=== PATIENT | female | born 1985 | race Two or more races ===

== ENCOUNTER 2016-10-17 10:11 | Emergency (ER) | payer OTHER ==
[2016-10-17 10:28] VITALS: BP 115/64; PULSE 72; RESP 20; TEMP 98.6; O2SAT 98
[2016-10-17] MEDS ORDERED: Sodium Chloride 0.9% 1,000 ML IV STA (10:49)
--- NOTE | 2016-10-17 11:20 | ED PDOC ---
HPI: Abdomen Time Seen by Provider: 10/17/16 11:19 Chief Complaint (Nursing): Abdominal Pain Chief Complaint (Provider): vaginal bleeding History Per: Patient (30 y/o female here with spotting and increased bleeding today. Patient states she noted faintly positive test today. Notes mild crampy lower abdominal pain. Has had recent US for ovarian cyst 08/2016.) Past Medical History Reviewed: Historical Data, Nursing Documentation, Vital Signs Vital Signs: Last Vital Signs Temp 98.6 F 10/17/16 10:22 Pulse 72 10/17/16 10:22 Resp 20 10/17/16 10:22 BP 115/64 10/17/16 10:22 Pulse Ox 98 10/17/16 11:20 - Family History Family History: States: No Known Family Hx - Allergies Allergies/Adverse Reactions: Allergies Allergy/AdvReac Type Severity Reaction Status Date / Time No Known Allergies Allergy Verified 10/17/16 10:27 Review of Systems ROS Statement: Except As Marked, All Systems Reviewed And Found Negative Physical Exam - Reviewed Nursing Documentation Reviewed: Yes Vital Signs Reviewed: Yes - Physical Exam Appears: Positive for: Well, Non-toxic, No Acute Distress Head Exam: Positive for: ATRAUMATIC, NORMAL INSPECTION, NORMOCEPHALIC Skin: Positive for: Normal Color, Warm, DRY Eye Exam: Positive for: EOMI, Normal appearance, PERRL ENT: Positive for: Normal ENT Inspection Neck: Positive for: Normal, Painless ROM Cardiovascular/Chest: Positive for: Regular Rate, Rhythm Respiratory: Positive for: CNT, Normal Breath Sounds Gastrointestinal/Abdominal: Positive for: Normal Exam, Bowel Sounds, Soft Pelvic Exam: Positive for: Active Bleeding, Other (closed cervix) Back: Positive for: Normal Inspection Extremity: Positive for: Normal ROM Neurologic/Psych: Positive for: Alert, Oriented - Laboratory Results Result Diagrams: 10/17/16 11:12 10/17/16 11:12 - ECG O2 Sat by Pulse Oximetry: 98 Disposition - Clinical Impression Clinical Impression: Threatened miscarriage - Patient ED Disposition Is Patient to be Admitted: No - Disposition Disposition: Routine/Home Disposition Time: 12:51 Condition: FAIR Additional Instructions: RETURN IN 2 DAYS FOR REPEAT BETA HCG Instructions: Threatened Miscarriage (ED)
[2016-10-17 11:28] LABS: BASO % 0.1 % (0.0-2.0); EOS # 0.1 K/uL (0.0-0.7); EOS % 0.6 % (0.0-4.0); HEMATOCRIT 38.6 % (34.0-47.0); LYMPH # 1.7 K/uL (1.0-4.3); LYMPH % 18.5 % (20.0-40.0); MEAN CELL VOLUME 81.8 fl (81.0-99.0); MONO # 0.7 K/uL (0.0-0.8); NEUT # 6.6 K/uL (1.8-7.0); NEUT % 72.8 % (50.0-75.0); NRBC % 0.1 % (0.0-0.0); RED CELL DISTRIBUTION WIDTH 13.4 % (11.5-14.5); WHITE BLOOD COUNT 9.1 K/uL (4.8-10.8)
[2016-10-17 11:32] LABS: BLOOD UREA NITROGEN 11 mg/dl (7-17); CARBON DIOXIDE 25 mmol/L (22-30); CHLORIDE 105 mmol/L (98-107); GFR AFRICAN-AMERICAN > 60; GLUCOSE,RANDOM 111 mg/dL (65-105); POTASSIUM 4.4 MMOL/L (3.6-5.0); SODIUM 138 mmol/l (132-148)
== END 2016-10-17 13:13 | disposition home or self-care (01) ==
LOC: H.ER 10:11
DX: O20.0 Threatened abortion (principal); Z3A.01 Less than 8 weeks gestation of pregnancy

== ENCOUNTER 2017-05-22 14:07 | Emergency (ER) | payer BC, OTHER ==
[2017-05-22 14:17] VITALS: TEMP 98
[2017-05-22] MEDS ORDERED: Sodium Chloride 0.9% 1,000 ML IV STA (15:13)
--- NOTE | 2017-05-22 15:31 | ED PDOC ---
HPI: Female Pain Time Seen by Provider: 05/22/17 14:27 Chief Complaint (Nursing): Female Genitourinary Chief Complaint (Provider): vaginal bleeding, cramping History Per: Patient, Family () History/Exam Limitations: no limitations Current Symptoms Are (Timing): Still Present Severity: Severe Quality Of Discomfort: Cramping Associated Symptoms: Nausea, Vomiting, Loss Of Appetite. denies: Diarrhea, Back Pain, Constipation Alleviating Factors: None Additional Complaint(s): 31yo female approx 8 wks presents c/o vaginal bleeding with clots and severe pelvic cramping since last night. to date complicated by intermittent bleeding, saw Dr Paez last week, US thus far showed a 6wk but possible out of range of dates? Due for another US this week but hasnt yet scheduled. Using tylenol for pain, denies syncope, fever or upper abd pain. Abnormal Vaginal Bleeding: Yes Last Menstral Period: 8 wks Past Medical History Reviewed: Historical Data, Nursing Documentation, Vital Signs Vital Signs: Last Vital Signs Temp 98 F 05/22/17 14:13 Pulse 71 05/22/17 14:13 Resp 20 05/22/17 14:13 BP 99/72 L 05/22/17 14:13 Pulse Ox 100 05/22/17 14:13 - Medical History PMH: No Chronic Diseases - Surgical History Surgical History: No Surg Hx - Family History Family History: States: Unknown Family Hx - Living Arrangements Living Arrangements: With Family - Social History Current smoker - smoking cessation education provided: No - Allergies Allergies/Adverse Reactions: Allergies Allergy/AdvReac Type Severity Reaction Status Date / Time No Known Allergies Allergy Verified 10/17/16 10:27 Review of Systems ROS Statement: Except As Marked, All Systems Reviewed And Found Negative Constitutional: Negative for: Fever, Chills Cardiovascular: Negative for: Chest Pain, Palpitations Respiratory: Negative for: Cough, Shortness of Breath Gastrointestinal: Positive for: Nausea, Vomiting Genitourinary Female: Positive for: Vaginal Bleeding, Pelvic Pain. Negative for : Dysuria, Hematuria, Vaginal Discharge Musculoskeletal: Positive for: Back Pain. Negative for: Neck Pain, Arm Pain Skin: Negative for: Rash, Lesions Neurological: Negative for: Weakness, Numbness, Altered Mental Status, Dizziness Physical Exam - Reviewed Nursing Documentation Reviewed: Yes Vital Signs Reviewed: Yes - Physical Exam Appears: Positive for: Well, Non-toxic, Uncomfortable Head Exam: Positive for: ATRAUMATIC, NORMAL INSPECTION, NORMOCEPHALIC Skin: Positive for: Normal Color, Warm, DRY Eye Exam: Positive for: EOMI, Normal appearance, PERRL ENT: Positive for: Normal ENT Inspection Neck: Positive for: Normal, Painless ROM Cardiovascular/Chest: Positive for: Regular Rate, Rhythm Respiratory: Positive for: CNT, Normal Breath Sounds Gastrointestinal/Abdominal: Positive for: Bowel Sounds, Soft, Tenderness (lower abd tenderness). Negative for: Guarding, Rebound Pelvic Exam: Positive for: External Exam Normal, Blood (moderate bleeding no clots), Tender Uterus. Negative for: Discharge, Lesions Back: Positive for: Normal Inspection Extremity: Positive for: Normal ROM Neurologic/Psych: Positive for: Alert, Oriented. Negative for: Motor/Sensory Deficits - Laboratory Results Result Diagrams: 05/22/17 15:26 05/22/17 15:26 - ECG O2 Sat by Pulse Oximetry: 100 Pulse Ox Interpretation: Normal Medical Decision Making Medical Decision Making: workup for spontaneous initiated labs and US ordered labs reviewed, Hgb normal HCG approx 7,000, down from 21K in office 4 days ago (has paperwork from Dr Paez office) Rh+ Accession No. : [id number] Patient Name / ID : ANTHONY ROMERO / [id number] Exam Date : 05/22/2017 15:09:14 ( Approved ) Study Comment : Sex / Age : F / 31Y Creator : Jesus Mayo MD Dictator : Jesus Mayo MD Customer Marketing Assistant : Student Services Rep : Jesus Mayo MD Approver2 : Report Date : 05/22/2017 16:42:35 My Comment : HISTORY: pelvic pain bleeding ; last menstrual period reported 03/19/2017 suggesting gestational age of 9 weeks 1 day. COMPARISON: None available. TECHNIQUE: Transvaginal pelvic ultrasound was performed with longitudinal and transverse images submitted for interpretation. FINDINGS: UTERUS: Measures 8.2 x 4.9 x 5.7 cm. Normal in size and appearance. No fibroid or other mass lesion seen. ENDOMETRIUM: Measures 10.0 mm in diameter. No intrauterine gestation appreciated or other fluid collection in the endometrial cavity. CERVIX: No cervical abnormality identified. RIGHT OVARY: Measures 2.7 x 2.4 x 2.2 cm. No solid mass. Normal flow. LEFT OVARY: Measures 3.0 x 1.2 x 3.9 cm. No solid mass. Normal flow. A small probable dominant follicle or even corpus luteum cyst is seen in the left ovary measure 1.3 x 0.8 x 1.3 cm. FREE FLUID: No significant free fluid noted. OTHER FINDINGS: None. IMPRESSION: No intrauterine gestation is identified an ectopic gestation is not proven during this examination. No suspicious adnexal findings at this time. An IUP should be identified at 9 weeks 1 day gestational age (as suggested by prior LMP ). Differential diagnosis is nonvisualized viable gestation within the uterus or failure of gestation. Ectopic gestation is not completely excluded at this time. Clinical correlation and sonographic follow-up are advised. Discussed w Dr Paez, will see in office 2-3 days. Indications for return to ER discussed. Mild/mod bleeding on pelvic exam, discussed pain management and need for followup. Disposition - Clinical Impression Clinical Impression: Spontaneous - Patient ED Disposition Is Patient to be Admitted: No Counseled Patient/Family Regarding: Studies Performed, Diagnosis, Need For Followup - Disposition Disposition: Routine/Home Disposition Time: 17:42 Condition: STABLE Additional Instructions: Return to ER for any worse or new bleeding, pain, fever or any concern. Forms: [employer] (Kiswahili)
[2017-05-22 15:39] LABS: BASO % 0.1 % (0.0-2.0); EOS # 0.1 K/uL (0.0-0.7); HEMOGLOBIN 13.5 g/dL (12.0-16.0); LYMPH # 1.7 K/uL (1.0-4.3); LYMPH % 15.9 % (20.0-40.0); MEAN CELL VOLUME 81.7 fl (81.0-99.0); MEAN CORPUSCULAR HEMOGLOBIN 28.3 pg (27.0-31.0); MEAN CORPUSCULAR HGB CONC 34.6 g/dL (33.0-37.0); MEAN PLATELET VOLUME 8.9 fl (7.2-11.7); MONO # 0.8 K/uL (0.0-0.8); MONO % 7.5 % (0.0-10.0); NEUT # 8.2 K/uL (1.8-7.0); NEUT % 75.5 % (50.0-75.0); NRBC % 0.1 % (0.0-0.0); RBC 4.76 Mil/uL (3.80-5.20); RED CELL DISTRIBUTION WIDTH 12.9 % (11.5-14.5); WHITE BLOOD COUNT 10.9 K/uL (4.8-10.8)
[2017-05-22 15:53] LABS: ALB/GLOB RATIO 1.1 (1.0-2.1); ALBUMIN 3.9 g/dL (3.5-5.0); ALT/SGPT 25 U/L (9-52); AST/SGOT 27 U/L (14-36); BLOOD UREA NITROGEN 10 mg/dl (7-17); CALCIUM 9.1 mg/dL (8.4-10.2); GFR AFRICAN-AMERICAN > 60; GFR NON-AFRICAN AMERICAN > 60
--- NOTE | 2017-05-22 16:45 | US ---
HISTORY: pelvic pain bleeding ; last menstrual period reported 03/19/2017 suggesting gestational age of 9 weeks 1 day. COMPARISON: None available. TECHNIQUE: Transvaginal pelvic ultrasound was performed with longitudinal and transverse images submitted for interpretation. FINDINGS: UTERUS: Measures 8.2 x 4.9 x 5.7 cm. Normal in size and appearance. No fibroid or other mass lesion seen. ENDOMETRIUM: Measures 10.0 mm in diameter. No intrauterine gestation appreciated or other fluid collection in the endometrial cavity. CERVIX: No cervical abnormality identified. RIGHT OVARY: Measures 2.7 x 2.4 x 2.2 cm. No solid mass. Normal flow. LEFT OVARY: Measures 3.0 x 1.2 x 3.9 cm. No solid mass. Normal flow. A small probable dominant follicle or even corpus luteum cyst is seen in the left ovary measure 1.3 x 0.8 x 1.3 cm. FREE FLUID: No significant free fluid noted. OTHER FINDINGS: None. IMPRESSION: No intrauterine gestation is identified an ectopic gestation is not proven during this examination. No suspicious adnexal findings at this time. An IUP should be identified at 9 weeks 1 day gestational age (as suggested by prior LMP). Differential diagnosis is nonvisualized viable gestation within the uterus or failure of gestation. Ectopic gestation is not completely excluded at this time. Clinical correlation and sonographic follow-up are advised.
[2017-05-22 17:49] LABS: SQUAMOUS EPITHIAL 1 /hpf (0-5); URINE AMORPHOUS SEDIMENT RARE /ul (<OCC); URINE BACTERIA OCC (<OCC); URINE BILIRUBIN NEGATIVE (NEGATIVE); URINE BLOOD LARGE (NEGATIVE); URINE CLARITY SLIGHTY-CLOUDY (Clear); URINE COLOR YELLOW (YELLOW); URINE GLUCOSE (UA) NEG (Normal); URINE LEUKOCYTE ESTERASE MOD Leu/uL (Negative); URINE NITRATE NEGATIVE (NEGATIVE); URINE PROTEIN 30 mg/dL (NEGATIVE); URINE UROBILINOGEN 0.2-1.0 mg/dL (0.2-1.0)
[2017-05-22 20:20] VITALS: BP 100/60; PULSE 80; RESP 18; O2SAT 99
== END 2017-05-22 20:20 | disposition home or self-care (01) ==
LOC: H.ER 14:07
DX: O03.9 Complete or unspecified spontaneous abortion without complication (principal); Z3A.09 9 weeks gestation of pregnancy
CPT/HCPCS: 76817; 80053; 81003; 84702; 85025; 86850; 86900; 99282; J7040

== ENCOUNTER 2017-10-30 10:58 | Day surgery (SDC) | payer BC ==
[2017-10-30 11:39] VITALS: BMI 22.8
[2017-10-30] MEDS ORDERED: Lactated Ringer's 1,000 ML IV ONE (12:20)
[2017-10-30 13:36] LABS: BASO % 0.4 % (0.0-2.0); EOS # 0.1 K/uL (0.0-0.7); EOS % 1.5 % (0.0-4.0); HEMOGLOBIN 13.1 g/dL (12.0-16.0); LYMPH # 2.6 K/uL (1.0-4.3); LYMPH % 39.9 % (20.0-40.0); MEAN CELL VOLUME 81.2 fl (81.0-99.0); MEAN CORPUSCULAR HEMOGLOBIN 27.4 pg (27.0-31.0); MEAN CORPUSCULAR HGB CONC 33.7 g/dL (33.0-37.0); MEAN PLATELET VOLUME 9.6 fl (7.2-11.7); MONO # 0.6 K/uL (0.0-0.8); MONO % 9.2 % (0.0-10.0); NEUT # 3.2 K/uL (1.8-7.0); NRBC % 0.2 % (0.0-0.0); RBC 4.78 Mil/uL (3.80-5.20); RED CELL DISTRIBUTION WIDTH 12.8 % (11.5-14.5); WHITE BLOOD COUNT 6.5 K/uL (4.8-10.8)
[2017-10-30] MEDS ORDERED: Midazolam 2 MG/2 ML VIAL ONE (13:37)
[2017-10-30] MEDS ORDERED: Propofol 10 mg/ml Inj (20 ML) ONE (13:37)
[2017-10-30] MEDS ORDERED: Succinylcholine 200 mg/10 ml Inj IV ONE (13:39)
[2017-10-30] MEDS ORDERED: HYDROmorphone 0.5 mg/0.5 ml ISec IVP PRN (14:35)
[2017-10-30] MEDS ORDERED: Lactated Ringer's 1,000 ML IV SCH (14:45)
[2017-10-30 16:24] VITALS: RESP 18
[2017-10-30 17:27] VITALS: BP 99/63; PULSE 72; TEMP 98.1; O2SAT 98
--- NOTE | 2017-11-02 06:39 | OP ---
PROCEDURE DATE: 10/30/2017 PREOPERATIVE DIAGNOSIS: The patient is a 31-year-old female with an endometrial polyp. POSTOPERATIVE DIAGNOSIS: The patient is a 31-year-old female with an endometrial polyp. SURGICAL PROCEDURE: Hysteroscopic polypectomy with Myosure LITE. SURGEON: Sandy Finney MD ANESTHESIA: Ajit Bills MD TYPE OF ANESTHESIA: General anesthesia with LMA. ESTIMATED BLOOD LOSS: Less than 10 mL. INTRAVENOUS FLUIDS: 900 mL normal saline. DEFICITS: 450 mL. DRAINS: None. SPECIMEN: Endometrial polyp. FINDINGS: 1. Anteverted uterus. 2. Uterine sound 9.25 cm. 3. Anterior sessile endometrial polyps at fundus. 4. Polypoid endometrium at anterior wall. 5. Normal tubal ostia bilaterally. 6. Hemostasis. DESCRIPTION OF PROCEDURE: After proper consent was obtained and all questions were answered, the patient was taken to the operating room #2 at [facility] Adequate general anesthesia was performed and administered with LMA and no complications. The patient was placed in the modified dorsal lithotomy position with the arms tucked at the correct positioning without . An exam under anesthesia was performed with findings of an anteverted uterus which is small . A sterile prep was done with Betadine in the usual fashion. A sterile prep and drape was done in the usual fashion. Attention was directed to the perineum. A weighted speculum was placed into the posterior fornix of the vagina, and a right angle retractor was entered at the fornix of the vagina. The cervix was visualized, and the anterior lip of the cervix was grasped with single-tooth tenaculum. The cervix was gently dilated using the Eyad dilators to accommodate the Myosure hysteroscope. A uterine sound was performed with findings of 9.25 cm uterine cavity. The hysteroscope was prepared with normal saline and examined into the uterine cavity under direct visualization. The uterine cavity was surveyed with findings of normal-appearing tubal ostia bilaterally. A polypoid endometrial surface at the anterior portion of uterine cavity, sessile endometrial polyp at midline fundus. The Myosure LITE device was prepared, and a portion of the Myosure hysteroscope was removed, and the Myosure LITE device was introduced into the uterine cavity under direct visualization. The fundal mucous polyp as well as the polypoid endometrium at the anterior surface of the uterine cavity were resected with the Myosure LITE. Complete resection of the polyp was noted. The remaining uterine cavity appeared normal. The shape of the endometrial cavity was normal. Hemostasis was noted at the end of the procedure. The Myosure hysteroscope was removed from the uterus under direct visualization, and the cervix was removed from the tenaculum. The cervical tenaculum sites were made hemostatic. . All instruments were removed from the vaginal wall. The patient was transferred to the recovery room in good condition. The patient will follow up with Dr. Sandy Finney in a week's time. The specimen was sent to Pathology for review. Sandy Finney MD
== END 2017-10-30 17:35 | disposition home or self-care (01) ==
LOC: H.OPSURG 10:58
PROVIDERS: ATTEND Obstetrics & Gynecology Reproductive Endocrinology
DX: N84.0 Polyp of corpus uteri (principal)
CPT/HCPCS: 36415; 58558; 85025; 88305; J0330; J2001; J2250; J2405; J2704; J2765; J3010; J7030; J7120

== ENCOUNTER 2018-09-16 05:14 | Emergency (ER) | payer BC ==
--- NOTE | 2018-09-16 16:31 | OBHP ---
Datetime: 09/16/2018 07:59 IP Adm Impression: Term, intrauterine IP Admit Plan: Observation/Evaluation; Discharge home Admit Comment, IP Provider: 32 yo at 39.5 EGA presents for contractions every 25 minutes and bloody discharge. She denies active bleeding and loss of fluid. Endorses good movement. No pro blems with thus far, hypothyroid on 50 mcy levothyroxine. BPP at 36 weeks 12/06. Pt of Dr Paez , last seen . OB: Dr Paez PMH: hypothyroid on 50mcg levo Surg Hx: cystectomy 2015, polypectomy 2018 Meds: Levo 50 mcg, vit d, PNV Labs: B+, GC/CL neg, RPR neg, Hep neg, HIV neg, rubella immune ROS: all other systems reviewed and negative unless noted in HPI. PE: Gen: comfortable, NAD CV: RRR Resp: no resp distress Abd: IUP, no tenderness A+P: 32 yo at 39.5 EGA presents for contractions every 25 minutes and bloody discharge. -VSS -Continuous EFM: reassuring, FHR 130, accels 15x15, no decels -Monitor Addendum: I saw and examined patient. No evidence of labor at this time. heart tracing category 1. Plan to discharge patient home with labor precautions. Discussed plan with patient and all patient q uestions answered. [place] Pelvic Type - PN: Adequate Extremities - PN: Normal Abdomen - PN: Normal Back - PN: Normal Breast - PN: Normal Lungs - PN: Normal Heart - PN: Normal Thyroid - PN: Normal Neurologic - PN: Normal HEENT - PN: Normal General - PN: Normal FHR - Baseline A Provider: 130 EGA AdmitDate IP: 39.5 Vital Signs Provider: Reviewed; Within Normal Limits IP Chief Complaint: Uterine contractions NICHD Variability Prov Fetus A: Moderate 6-25bpm NICHD Accel Fetus A IP Provider: 15X15 FHR Category Provider Fetus A: Category I NICHD Decel Fetus A IP Provider: None Genitourinary Exam: Normal DTRs - PN: Normal
[2018-09-16 20:29] VITALS: BP 102/73; PULSE 70; RESP 18; TEMP 97.9; O2SAT 99
== END 2018-09-16 08:51 | disposition home or self-care (01) ==
LOC: H.EROB2 05:14
DX: O26.93 Pregnancy related conditions, unspecified, third trimester (principal); R10.2 Pelvic and perineal pain; Z3A.39 39 weeks gestation of pregnancy; O99.283 Endocrine, nutritional and metabolic diseases complicating pregnancy, third trimester; E03.9 Hypothyroidism, unspecified; O47.1 False labor at or after 37 completed weeks of gestation

== ENCOUNTER 2018-09-17 11:09 | Inpatient (IN) | payer BC ==
[2018-09-17 12:18] VITALS: BMI 27.9
[2018-09-17 12:48] LABS: BASO % 0.2 % (0.0-2.0); EOS # 0.1 K/uL (0.0-0.7); EOS % 0.7 % (0.0-4.0); HEMOGLOBIN 13.7 g/dL (12.0-16.0); LYMPH % 22.4 % (20.0-40.0); MEAN CELL VOLUME 82.4 fl (81.0-99.0); MEAN CORPUSCULAR HEMOGLOBIN 28.7 pg (27.0-31.0); MEAN CORPUSCULAR HGB CONC 34.9 g/dL (33.0-37.0); MEAN PLATELET VOLUME 9.7 fl (7.2-11.7); MONO % 11.7 % (0.0-10.0); NEUT # 5.7 K/uL (1.8-7.0); RBC 4.76 Mil/uL (3.80-5.20); RED CELL DISTRIBUTION WIDTH 13.8 % (11.5-14.5); WHITE BLOOD COUNT 8.7 K/uL (4.8-10.8)
--- NOTE | 2018-09-17 13:01 | OBHP ---
Datetime: 09/17/2018 12:15 IP Adm Impression: Term, intrauterine IP Admit Plan: Admit to unit; Initiate labor induction protocol Admit Comment, IP Provider: 32 y/o female at 39.6 EGA based on LMP 12/12/17 presents for vagi nal spotting and painful contractions every 25 minutes. She denies active bleeding and loss of fluid. Endorses good movement. She is hypothyroid on 50 mcy levothyroxine. OB: Dr Paez OBhx: miscarriage x2 PMH: hypothyroid on 50mcg levo Surg Hx: cystectomy 2016, polypectomy 2018 Meds: Levo 50 mcg, vit d, PNV Social: denies toxic habits Famhx: Mother w/ hx of HTN Allergies: NKDA ROS: all other systems reviewed and negative unless noted in HPI. PE: Gen: comfortable, NAD CV: RRR Resp: no resp distress Abd: IUP, no tenderness SVE (by Dr. Zaldivar): closed cervix, soft Ext: no swelling/erythema/tenderness Psych: appropriate mood, good eye contact, cooperative w/ exam A+P: 32 yo at 39.6 EGA presents for spotting and contractions Labs: B+, GC/CL neg, RPR neg, Hep neg, HIV neg, rubella immune Admit patient to L_D CBC and type and screen [place] and NST monitoring Cervidil 10mg Vag x 1 Can have epidural; anesthesiology consulted Case discussed w/ attending, Dr. Kayley Mendoza, [facility] OB Hospitalist Addendum: Pt seen and examined by me. Agree a/ above. 32 yo at 39+ 6 wks scheduled for induction of labor tonight, presents w/ vaginal bleeding and ctxns every 30-30 minutes. Will keep pt for induction w/ cervidil. FHT reactive. GBS negative. (ES) Pelvic Type - PN: Adequate Extremities - PN: Normal Abdomen - PN: Normal Back - PN: Not Done Breast - PN: Not Done Lungs - PN: Normal Heart - PN: Normal Thyroid - PN: Not Done Neurologic - PN: Not Done HEENT - PN: Not Done General - PN: Normal FHR - Baseline A Provider: 150 Gestation - Est Wks by US: 39.6 IP Hx Assessment: The History has been Reviewed and is Current EGA AdmitDate IP: 39.6 Vital Signs Provider: Reviewed; Within Normal Limits IP Chief Complaint: Vaginal bleeding NICHD Variability Prov Fetus A: Moderate 6-25bpm NICHD Accel Fetus A IP Provider: 15X15 NICHD Decel Fetus A IP Provider: None Dilatation, Provider: 0 Genitourinary Exam: Normal DTRs - PN: Not Done Datetime: 09/17/2018 12:00 IP Chief Complaint Other: vaginal spotting Membranes, Provider: Intact Contraction Comments Provider: Q2-4 minutes FHR Category Provider Fetus A: Category I Effacement, Provider: 0 Station, Provider: -3
[2018-09-17] MEDS: Lactated Ringer's 1,000 ML IV SCH ×2 (17:37→18:39)
[2018-09-17] MEDS ORDERED: Nalbuphine HCL 10 mg/ml Ampule IVP PRN (19:52)
[2018-09-18] MEDS ORDERED: Nalbuphine HCL 10 mg/ml Ampule IVP ONE (00:04)
[2018-09-18] MEDS ORDERED: Oxytocin 30 UNIT in NS 500 ml 30 UNITS/500 ML BAG IV ONE ×3 (02:40→16:42)
[2018-09-18] MEDS ORDERED: Lactated Ringer's 1,000 ML IV SCH (02:45)
[2018-09-18] MEDS ORDERED: Fentanyl/Bupivacaine HCl 250 ML EPI ONE (03:16)
[2018-09-18] MEDS: Lactated Ringer's 1,000 ML IV SCH ×4 (03:51→22:43)
[2018-09-18] MEDS ORDERED: ePHEDrine 50 mg/ml Inj ONE (04:57)
--- NOTE | 2018-09-18 10:00 | OBPN ---
Datetime: 09/18/2018 09:25 IP Progress Impression: Reassuring heart rate IP Progress Plan: Augmentation; Anticipate Vaginal Delivery Pool Provider: Negative Membranes, Provider: Intact Contraction Comments Provider: occ FHR - Baseline A Provider: 120 Presentation-Admit: Vertex IP Progress Note Comment: Ob Hopsitalist on-call Sign out rec'd Admitted for IOL - startedon Cercidil - rec'd epidural and currently on Pitocin at 2miu/h SVE 1-2cm - attempted to AROM but unable/toohigh A: 40w early labor Hypothyroidism PLAN: discussion with pt about IOL with Pitocin; she will do mipple stim...will observe labor prog ress NICHD Accel Fetus A IP Provider: 15X15 FHR Category Provider Fetus A: Category I NICHD Variability Prov Fetus A: Moderate 6-25bpm Dilatation, Provider: 1-2 Effacement, Provider: 50 Station, Provider: -1 NICHD Decel Fetus A IP Provider: None Datetime: 09/17/2018 12:15 Gestation - Est Wks by US: 39.6 Vital Signs Provider: Reviewed; Within Normal Limits
[2018-09-18] MEDS ORDERED: Lidocaine 2% PF (10 ml) Amp ONE (13:18)
[2018-09-18] MEDS ORDERED: ceFAZolin 2 GM in Sodium Chloride 0.9% 100 ML IVPB ONE (15:53)
--- NOTE | 2018-09-18 15:57 | OBPN ---
Datetime: 09/18/2018 15:56 IP Progress Impression: Non-reassuring heart rate IP Informed Consent Obtain: Section Delivery; Risks, Benefits and Alternatives Discussed IP Progress Plan: Deliver- Section FHR - Baseline A Provider: 200 FHR Category Provider Fetus A: Category III Datetime: 09/18/2018 15:50 IP Progress Note Comment: S O A: 32 y/o female at 40.0 wk GA P Dilatation, Provider: 3 Datetime: 09/18/2018 15:35 IP Progress Plan Other: Stop Pitocin; O2 left lateral Pool Provider: Positive Membranes, Provider: Ruptured Contraction Comments Provider: 1-2m IP Fetus A Comments: Decel 3m Presentation-Admit: Vertex Effacement, Provider: 80 Station, Provider: -2 Datetime: 09/18/2018 13:55 NICHD Accel Fetus A IP Provider: 15X15 NICHD Variability Prov Fetus A: Moderate 6-25bpm NICHD Decel Fetus A IP Provider: None
--- NOTE | 2018-09-18 16:00 | OBPN ---
Datetime: 09/18/2018 15:56 IP Progress Note Comment: Notiifed that she has tachycardia starting at 13:40pm. tachy/NRT/afebirle PLAN: condition explained to pt and her . Their questions answered. WIll rep for C/S...inf ormed consentn obtained
[2018-09-18] MEDS ORDERED: Bupivacaine HCl 0.5% PF (30 ml) Inj ONE (16:02)
[2018-09-18] MEDS ORDERED: Morphine 5 mg/10 ml preservative-free Inj(Duramorph) ONE (16:06)
--- NOTE | 2018-09-18 16:19 | NBADN ---
Datetime: 09/18/2018 16:17 Nsy Prov Gen Appearance: Within Normal Limits Nsy Prov Gen Appearance: Within Normal Limits Nsy Prov Skin: Within Normal Limits Nsy Prov Neuro: Normal Tone; [place]; Grasp; Root; Suck Nsy Prov Musculoskeletal: Within Normal Limits; Full Range of Motion; Spontaneous Movement All Extre mities; Intact Clavicles; Clavicles without Crepitus; Gluteal Folds Symmetrical; Spine Within Normal Limits; No Sacral Dimple/Cyst Nsy Prov Head: Normal Fontanelles; Normocephalic; Sutures WNL Nsy Prov EENT: Mouth Within Normal Limits; Ears Within Normal Limits; Eyes Within Normal Limits; Eye s Red Reflex Bilaterally; Nose Within Normal Limits; Face Within Normal Limits Nsy Prov Cardiovascular: Within Normal Limits; Normal Pulses Nsy Prov Respiratory: Within Normal Limits Nsy Prov GI: Within Normal Limits; Soft; Normal Liver; Non Palpable Spleen; Patent Anus Nsy Prov Umbilicus: Within Normal Limits; Three Vessel Cord Nsy Prov : Normal Female Genitalia Nsy Prov Impression: Healthy Term ; Vital Signs Appropriate; Bonding Appropriately; Voiding a nd Stooling Nsy Prov Plan: Continue Care Nsy Prov Impression/Plan Details: FT female, AGA, CS. Datetime: 09/16/2018 06:05 Mother's Rule Inc Maternal Age: Age >=35 at JEROMY not specified Mother's Rule Thalassemia: Thalassemia History not specified Mother's Rule Neural Tube Defect: Neural Tube Defect History not specified Mother's Rule Congenital Heart: Congenital Heart Defect not specified Mother's Rule Down Syndrome: Down Syndrome History not specified Mother's Rule Kamaljit-Sachs: Kamaljit-Sachs History not specified Mother's Rule Alfredo: Alfredo History not specified Mother's Rule Familial Dysauto: Familial Dysautonomia History not specified Mother's Rule Sickle Cell: Sickle Cell Disease/Trait History not specified Mother's Rule Hemophilia: Hemophilia/Blood Disorder History not specified Mother's Rule Muscular Dystrophy: Muscular Dystrophy History not specified Mother's Rule Cystic Fibrosis: Cystic Fibrosis History not specified Mother's Rule Mayes's Chor: Meg's Chorea History not specified Mother's Rule Mental Retardation: Mental Retardation/Autism History not specified Mother's Rule Fragile X: Fragile X Testing History not specified Mother's Rule Oth Inherited DO: Other Inherited/Chromosomal Disorders not specified Mother's Rule Maternal Metabolic: Maternal Metabolic History not specified Mother's Rule FOB Defects: Pt Father or FOB Defect History not specified Mother's Rule Hx Stillborn MBL: Loss/Stillborn History not specified Mother's Rule Other Genetic Hx: Other Genetic History not specified Mother's Rule Drugs/Medications: Drugs/Medications History not specified Mother's Rule Gonorrhea: Gonorrhea History Not Specified Mother's Rule Chlamydia: Chlamydia History not specified Mother's Rule Syphilis: Syphilis History not specified Mother's Rule HIV/AIDS Exp: HIV/Aids Exposure not specified Mother's Rule HPV: Human Papillomavirus History not specified Mother's Rule Genital Herpes: Genital Herpes not specified Mother's Rule TB: Tuberculosis History not specified Mother's Rule Hepatitis: Hepatitis History Not Specified Mother's Rule Rash or Viral Ill: Rash or Viral Illness History not specified Mother's Rule Diabetes: Diabetes History not specified Mother's Rule Hypertension MBL: History of Hypertension Not Specified Mother's Rule Heart Disease: Heart Disease History not specified Mother's Rule Autoimmune: Autoimmune Disorder History not specified Mother's Rule Kidney Disease: History of Kidney Disease/UTI not specified Mother's Rule Neurologic: Neurologic/Epilepsy Disorders not specified Mother's Rule Psych Disorders: Psychiatric Disorder History not specified Mother's Rule Depression/PP Dep: Depression/ Depression History not specified Mother's Rule Hepaitis/tLiver: History of Hepatitis/Liver Disease not specified Mother's Rule Varicos/Phlebitis: Varicosities/Phlebitis History Not Specified Mother's Rule Thyroid Dysfunct: Thyroid Dysfunction not specified Mother's Rule Trauma/Violence: Trauma/Violence History Not Specified Mother's Rule Blood Transfusion: Blood Transfusion History not specified Mother's Rule Sensitization: D (Rh) Sensitization not specified Mother's Rule Pulmonary: Pulmonary (Asthma, TB) History not specified Mother's Rule Breast: Breast History not specified Mother's Rule Adobe Ball Mixer Surgery: Adobe Ball Mixer Surgery Hx not specified Mother's Rule Hosp/Surgery: Hospitalization/Surgery History not specified Mother's Rule Anesthetic Comp: Anesthetic Complications Hx not specified Mother's Rule Abnormal Pap: Abnormal Pap Smear not specified Mother's Rule Uterine Anomaly: Uterine Anomaly/RAJNI not specified Mother's Rule Infertility: Infertility Not Specified Mother's Rule ART Treatment: ART Treatment History not specified Mother's Rule Other Med Disease: Other Medical Diseases History not specified Mother's Rule Family History: Significant Family History not specified
--- NOTE | 2018-09-18 16:19 | DELATT ---
Datetime: 09/16/2018 06:05 Del Note Departure Status: Nursery Del Note Time: 30 Del Note Status: FT female, AGA, CS. Del Note Reason for Attend Other: decelerations Del Note Interventions: Assessment; Stimulation; Drying Del Note Reason for Attending: Section EAMON/NICU Del Atten Note Adm
[2018-09-18] MEDS ORDERED: Propofol 10 mg/ml Inj (20 ML) ONE (16:30)
[2018-09-18] MEDS ORDERED: OXYTOCIN/0.9 % NS 20 UNIT/1,000 ML BAG IV SCH (16:30)
[2018-09-18] MEDS ORDERED: Absorbable Gelatin Sponge Size 12-7 ONE (16:40)
[2018-09-18] MEDS ORDERED: Oxycodone/Acetaminophen 5/325 mg Tab PO PRN (17:14)
[2018-09-18] MEDS ORDERED: Labetalol 5mg/ml (4ml) ONE (17:45)
[2018-09-18 17:57] LABS: BASO # 0.1 K/uL (0.0-0.2); BASO % 0.3 % (0.0-2.0); EOS % 0.2 % (0.0-4.0); LYMPH # 1.1 K/uL (1.0-4.3); LYMPH % 7.4 % (20.0-40.0); MEAN CORPUSCULAR HEMOGLOBIN 28.6 pg (27.0-31.0); MEAN CORPUSCULAR HGB CONC 33.8 g/dL (33.0-37.0); MEAN PLATELET VOLUME 9.7 fl (7.2-11.7); MONO # 1.1 K/uL (0.0-0.8); MONO % 7.5 % (0.0-10.0); NEUT # 12.8 K/uL (1.8-7.0); NEUT % 84.6 % (50.0-75.0); RED CELL DISTRIBUTION WIDTH 13.7 % (11.5-14.5)
[2018-09-18] MEDS ORDERED: DiphenhydrAMINE 50 mg/ml Inj IVP PRN (17:58)
--- NOTE | 2018-09-18 18:00 | PCM.RRT ---
<Deepthi Dumont - Last Filed: 09/18/18 18:09> SANITATION SUPERINTENDENT Nurse Assessment - Situation SANITATION SUPERINTENDENT Responder Arrival Time: 17:45 Location: Labor and Delivery Room Number: 520 SANITATION SUPERINTENDENT Reason for Call: Hypertension SANITATION SUPERINTENDENT Called By: Physician - IV IV Inserted during SANITATION SUPERINTENDENT?: No - Respiratory Oxygen Delivery Method: Room Air - Medication Medications Administered During SANITATION SUPERINTENDENT: None - Diagnostic Test Ordered EKG: No Chest X-Ray: No CT Scan: No - Stat Labs Ordered SANITATION SUPERINTENDENT Stat Labs Ordered: CBC SANITATION SUPERINTENDENT Other Labs Ordered: CMP CPR started during SANITATION SUPERINTENDENT?: No - Vital Signs Vital Signs: BP: 180's/ 150's ; SpO2: 100% ; HR: 200's - [place] Coma Scale Coma Scale Eye Opening: Spontaneous Coma Scale Motor: Obeys Commands Movement Coma Scale Verbal: Oriented Coma Scale Total: 15 - Time SANITATION SUPERINTENDENT Ended Time SANITATION SUPERINTENDENT Ended: 17:55 - Vital Signs at end of SANITATION SUPERINTENDENT Vital Signs at end of SANITATION SUPERINTENDENT: BP: 136/63 ; SpO2: 100% ; HR: 98 - Recommendations SANITATION SUPERINTENDENT Level of Care Recommendations: Remain in current setting I.Reason for SANITATION SUPERINTENDENT - A) Acute Change in Patient: (Select all that apply): Staff member or family is worried about patient Subjective: 32 yo with history of thyroidism s/p emergency C/S for distress SANITATION SUPERINTENDENT called for Hypertension (180's/150's HR: 200's). Patient reports shivers but denies chest pain, shortness of breath, abdominal pain, headaches or changes in vision. - Neurological Status (Select all that apply): Alert, Responsive, Oriented, Verbal, Follows Commands - Respiratory Oxygen Delivery Method: Room Air - Constitutional Appears: Non-toxic, No Acute Distress - Eyes Eye Exam: Normal appearance - Respiratory Exam Respiratory Exam: Clear to Ausculation Bilateral, NORMAL BREATHING PATTERN. absent: Accessory Muscle Use, Chest Wall Tenderness, Decreased Breath Sounds, Prolonged Expiratory Phase, Rales, Rhonchi, Wheezes, Respiratory Distress, Stridor - Cardiovascular Exam Cardiovascular Exam: Tachycardia, +S1, +S2 - GI/Abdominal Exam GI & Abdominal Exam: Soft, Normal Bowel Sounds. absent: Distended, Firm, Guarding, Rigid, Tenderness, Rebound - Neurological Exam Neurological Exam: Alert, Awake, Oriented x3 Plan - Assessment of Findings&Treatment Plan 32 yo with history of thyroidism s/p emergency C/S for distress SANITATION SUPERINTENDENT called for Hypertension (180's/150's HR: 200's) Plan: Elevated BP s/p emergency C/S - Now resolved - Repeat BP: 142/68 HR: 90's - No intervention at this time - Monitor - CBC - CMP - Stay in current location SANITATION SUPERINTENDENT leader: Dr. Doyle ; Residents: Dr. Stein, PGY 2 , Dr. Leija, PGY 3; Dr. Dumont, PGY 1, Dr. Espinal, PGY 1 <Kobi Doyle D - Last Filed: 09/18/18 19:18> SANITATION SUPERINTENDENT Nurse Assessment - Vital Signs Vital Signs: Rapid Response Vital Sign Blood Pressure 180/157 Pulse Rate 200 Respiratory Rate 20 Temperature 98.9 F Oxygen Saturation 100 - Vital Signs at end of SANITATION SUPERINTENDENT Vital Signs at end of SANITATION SUPERINTENDENT: Rapid Response End Vital Sign Blood Pressure 136/63 Pulse Rate 125 Respiratory Rate 18 Temperature 98.9 F O2 Sat by Pulse Oximetry 100 Attending/Attestation - Attestation I have personally seen and examined this patient.: Yes I have fully participated in the care of the patient.: Yes I have reviewed all pertinent clinical information, including history, physical exam and plan: Yes Notes (Text): 09/18/18 19:15 Patient seen and examined with resident during SANITATION SUPERINTENDENT because of tachycardia post C section. As per anesthesiologist patient had been tachycardic even before the procedure. Case discussed and agreed with assessment.
[2018-09-18 18:02] LABS: HEMOGLOBIN 10.8 g/dL (12.0-16.0); MEAN CELL VOLUME 84.4 fl (81.0-99.0); PLATELET COUNT 113 K/uL (130-400); WHITE BLOOD COUNT 15.1 K/uL (4.8-10.8)
[2018-09-18 18:18] LABS: BANDS 15 % (0-2); HYPOCHROMIC SLIGHT; LYMPHOCYTE 8 % (20-50); MONOCYTE 4 % (0-10); NEUTROPHIL 72 % (42-75); PLATELET ESTIMATE SLIGHTLY DECREASED (NORMAL); REACTIVE LYMPHOCYTES 1 % (0-0); TOTAL CELLS COUNTED 100
[2018-09-18 18:26] LABS: ALBUMIN 2.4 g/dL (3.5-5.0); ALT/SGPT 31 U/L (9-52); AST/SGOT 24 U/L (14-36); BLOOD UREA NITROGEN 4 mg/dl (7-17); CALCIUM 7.7 mg/dL (8.4-10.2); GFR NON-AFRICAN AMERICAN > 60
[2018-09-18] MEDS ORDERED: SODIUM CHLORIDE 0.9% IVPB SCH (19:30)
[2018-09-18] MEDS ORDERED: GENTAMICIN IVPB SCH (19:30)
[2018-09-18 19:56] LABS: URINE BACTERIA RARE (<OCC); URINE BILIRUBIN NEGATIVE (NEGATIVE); URINE BLOOD SMALL (NEGATIVE); URINE CLARITY SLIGHTY-CLOUDY (Clear); URINE COLOR YELLOW (YELLOW); URINE GLUCOSE (UA) NEG (NEGATIVE); URINE LEUKOCYTE ESTERASE TRACE Leu/uL (Negative); URINE PROTEIN NEGATIVE (NEGATIVE); URINE UROBILINOGEN 0.2-1.0 mg/dL (0.2-1.0)
[2018-09-18 20:41] LABS: BASO # 0.1 K/uL (0.0-0.2); BASO % 0.4 % (0.0-2.0); EOS % 0.1 % (0.0-4.0); HEMOGLOBIN 10.4 g/dL (12.0-16.0); LYMPH # 0.9 K/uL (1.0-4.3); MEAN CELL VOLUME 85.3 fl (81.0-99.0); MEAN CORPUSCULAR HEMOGLOBIN 28.4 pg (27.0-31.0); MEAN CORPUSCULAR HGB CONC 33.3 g/dL (33.0-37.0); MEAN PLATELET VOLUME 10.3 fl (7.2-11.7); MONO # 1.2 K/uL (0.0-0.8); MONO % 7.4 % (0.0-10.0); NEUT # 13.6 K/uL (1.8-7.0); NEUT % 86.1 % (50.0-75.0); NRBC % 0.1 % (0.0-0.0); RBC 3.65 Mil/uL (3.80-5.20); WHITE BLOOD COUNT 15.8 K/uL (4.8-10.8)
[2018-09-18] MEDS: Simethicone 80 mg Chewtab PO SCH (22:16)
[2018-09-19] MEDS: Simethicone 80 mg Chewtab PO SCH ×4 (04:07→21:46)
[2018-09-19 05:42] LABS: HEMOGLOBIN 8.8 g/dL (12.0-16.0); MEAN CELL VOLUME 84.7 fl (81.0-99.0); MEAN CORPUSCULAR HGB CONC 33.1 g/dL (33.0-37.0); RBC 3.14 Mil/uL (3.80-5.20); RED CELL DISTRIBUTION WIDTH 13.8 % (11.5-14.5); WHITE BLOOD COUNT 12.3 K/uL (4.8-10.8)
[2018-09-19] MEDS: Levothyroxine 50 MCG TAB PO SCH (06:20)
--- NOTE | 2018-09-19 07:17 | OBPPN ---
Datetime: 09/18/2018 21:38 PP Pain Prov: Within normal limits PP Nausea Prov: Denies PP Flatus Prov: Yes PP Breasts Prov: Normal PP Heart Prov: Normal PP Lungs Prov: Normal PP Abdomen/Uterus Prov: Normal PP Lochia Prov: Normal PP Vulva/Perineum Prov: Normal PP CVA Tenderness Prov: Normal PP Extremities Prov: Normal PP Progress Note Prov: Patient is S/P C section on POD 0. Patient with temp of 100.1, BP WNL, HR 100 s, asymptomatic. Patient stable to transfer to D/C psychologist private practice CBC with WBC 15.6, HgB 10.8, Plt 104 Spoke with hospitalist adaptive physical education teacher who agrees with plan Case discussed with Dr. Jeannine Madison OB Hospitalist note. Agree with PGY1 note MAHNDO Vital Signs Provider PP: Reviewed Datetime: 09/18/2018 19:23 PP Impression Prov: Increased temperature Datetime: 09/18/2018 18:00 PP C/S Incision Prov: Normal PP Progress Prov: Not Applicable
--- NOTE | 2018-09-19 07:18 | OBDS ---
DELIVERY PERSONNEL Delivery Doctor: Tawana Paez DO Quarry Plant Crusher Operator: Michelle Drummond RN Anesthesiologist: Dr Verdin Resident: Dr Mendoza MATERNAL INFORMATION Delivery Anesthesia: Epidural Medications in Delivery: Ancef, pitocin Estimated Blood Loss (ml): 1000 Placenta Cultured: Yes Maternal Complications: None Provider Comments: Pre Op Dx: IUP 40w tachycardia / non - reassuring tracing Post op DX: same Procedure: Primary LTCS via Pfannenstiel incision Surgeon: Dr Paez Asst: Dr Obrien Anesth: Dr Verdin Anest: epidural Findings: -Live delivered from cephalic presentation -Clear AF -Infant was crying spontaneously and handed to Peds - 9,9 -Placenta was delivered intact manually -Ovaries and fallopian tubes WNL -Double layer closure of uterus/Gelfoam placed -She had tachycardia during surgery but improved at the end of surgery -all equipment sponges and needles accounted for -She remained stable -EBL 1000cc LABOR SUMMARY EDC: 09/18/2018 00:00 EDC: 09/18/2018 00:00 No. Babies in Womb: 1 Attempted: No Labor Anesthesia: Epidural LABOR INFORMATION Group B Beta Strep: Negative Group B Beta Strep: Negative MEMBRANES Membranes Rupture Method: Spontaneous Membranes Rupture Method: Spontaneous Membranes Rupture Method: Spontaneous Membranes Rupture Method: Spontaneous Membranes Rupture Method: Spontaneous Membranes Rupture Method: Spontaneous Membranes Rupture Method: Spontaneous Membranes Rupture Method: Spontaneous Membranes Rupture Method: Spontaneous Membranes Rupture Method: Spontaneous Membranes Rupture Method: Spontaneous Membranes Rupture Method: Spontaneous Rupture of Membranes: 09/18/2018 12:10 Rupture of Membranes: 09/18/2018 12:10 Length of Rupture (hrs): 4.03 Length of Rupture (hrs): 4.03 Amniotic Fluid Color: Clear Amniotic Fluid Color: Clear Amniotic Fluid Color: Clear Amniotic Fluid Color: Clear Amniotic Fluid Color: Clear Amniotic Fluid Color: Clear Amniotic Fluid Color: Clear Amniotic Fluid Color: Clear Amniotic Fluid Color: Clear Amniotic Fluid Color: Clear Amniotic Fluid Color: Clear Amniotic Fluid Color: Clear Amniotic Fluid Amount: Moderate Amniotic Fluid Amount: Moderate Amniotic Fluid Amount: Moderate Amniotic Fluid Amount: Moderate Amniotic Fluid Amount: Moderate Amniotic Fluid Amount: Moderate Amniotic Fluid Amount: Moderate Amniotic Fluid Amount: Moderate Amniotic Fluid Amount: Moderate Amniotic Fluid Amount: Moderate Amniotic Fluid Odor: Normal Amniotic Fluid Odor: Normal Amniotic Fluid Odor: Normal Amniotic Fluid Odor: Normal Amniotic Fluid Odor: Normal Amniotic Fluid Odor: Normal Amniotic Fluid Odor: Normal Amniotic Fluid Odor: Normal Amniotic Fluid Odor: Normal STAGES OF LABOR Stage 3 hrs: 0 Stage 3 min: 2 CSECTION DELIVERY Primary Indication: Nonreassuring Status CSection Urgency: Emergency CSection Incidence: Primary Labor: Labor Elective: Nonelective CSection Incision: Lower Uterine Transverse Uterine Closure: Double-layer closure BABY A INFORMATION Infant Delivery Date/Time: 09/18/2018 16:12 Method of Delivery: Born in Route : No : N/A Forceps: N/A Vacuum Extraction: N/A Shoulder Dystocia : No SHOULDER DYSTOCIA BABY A Delivery Date/Time: 09/18/2018 16:12 PRESENTATION/POSITION BABY A Presentation: Cephalic PLACENTA INFORMATION BABY A Placenta Delivery Time : 09/18/2018 16:14 Placenta Method of Delivery: Manual Removal Placenta Status: Delivered SCORES BABY A Heart Rate 1 min: >100 bpm Resp Effort 1 min: Good Cry Reflex Irritability 1 min: Cough or Sneeze or Pulls Away Muscle Tone 1 min: Active Motion Color 1 min: Body [place], Extremities Blue Resuscitation Effort 1 min: N/A SCORE 1 MIN: 9 Heart Rate 5 min: >100 bpm Resp Effort 5 min: Good Cry Reflex Irritability 5 min: Cough or Sneeze or Pulls Away Muscle Tone 5 min: Active Motion Color 5 min: Body [place], Extremities Blue Resuscitation Effort 5 min: N/A SCORE 5 MIN: 9 INFANT INFORMATION BABY A Gestational Age at Delivery: 40.0 Gestational Status: Term Infant Outcome : Liveborn Infant Condition : Stable Infant Sex: Female WEIGHT/LENGTH BABY A Birthweight (gms): 2985 Infant Weight (lb): 6 Weight (oz): 9 Infant Length Inches: 19.00 Infant Length cms: 48.3 CORD INFORMATION BABY A No. Cord Vessels: 3 Nuchal Cord : N/A Cord Blood Taken: Yes Suction: Mouth ASSESSMENT BABY A Transferred To: Nursery
--- NOTE | 2018-09-19 07:19 | OBDS ---
DELIVERY PERSONNEL Delivery Doctor: Tawana Paez DO Blade Aligner: Michelle Drummond RN Anesthesiologist: Dr Verdin Resident: Dr Mendoza MATERNAL INFORMATION Delivery Anesthesia: Epidural Medications in Delivery: Ancef, pitocin Estimated Blood Loss (ml): 1000 Placenta Cultured: Yes Maternal Complications: None Provider Comments: Pre Op Dx: IUP 40w tachycardia / non - reassuring tracing Post op DX: same Procedure: Primary LTCS via Pfannenstiel incision Surgeon: Dr Paez Asst: Dr Obrien Anesth: Dr Verdin Anest: epidural Findings: -Live infant delivered from cephalic presentation -Clear AF - was crying spontaneously and handed to Peds - 9,9 -Placenta was delivered intact manually -Ovaries and fallopian tubes WNL -Double layer closure of uterus/Gelfoam placed -She had tachycardia during surgery but improved at the end of surgery -all equipment sponges and needles accounted for -She remained stable -EBL 1000cc LABOR SUMMARY EDC: 09/18/2018 00:00 No. Babies in Womb: 1 Attempted: No Labor Anesthesia: Epidural LABOR INFORMATION Group B Beta Strep: Negative MEMBRANES Membranes Rupture Method: Spontaneous Rupture of Membranes: 09/18/2018 12:10 Length of Rupture (hrs): 4.03 Amniotic Fluid Color: Clear Amniotic Fluid Amount: Moderate Amniotic Fluid Odor: Normal STAGES OF LABOR Stage 3 hrs: 0 Stage 3 min: 2 CSECTION DELIVERY Primary Indication: Nonreassuring Status CSection Urgency: Emergency CSection Incidence: Primary Labor: Labor Elective: Nonelective CSection Incision: Lower Uterine Transverse Uterine Closure: Double-layer closure BABY A INFORMATION Infant Delivery Date/Time: 09/18/2018 16:12 Method of Delivery: Born in Route : No : N/A Forceps: N/A Vacuum Extraction: N/A Shoulder Dystocia : No SHOULDER DYSTOCIA BABY A Delivery Date/Time: 09/18/2018 16:12 PRESENTATION/POSITION BABY A Presentation: Cephalic PLACENTA INFORMATION BABY A Placenta Delivery Time : 09/18/2018 16:14 Placenta Method of Delivery: Manual Removal Placenta Status: Delivered SCORES BABY A Heart Rate 1 min: >100 bpm Resp Effort 1 min: Good Cry Reflex Irritability 1 min: Cough or Sneeze or Pulls Away Muscle Tone 1 min: Active Motion Color 1 min: Body [place], Extremities Blue Resuscitation Effort 1 min: N/A SCORE 1 MIN: 9 Heart Rate 5 min: >100 bpm Resp Effort 5 min: Good Cry Reflex Irritability 5 min: Cough or Sneeze or Pulls Away Muscle Tone 5 min: Active Motion Color 5 min: Body [place], Extremities Blue Resuscitation Effort 5 min: N/A SCORE 5 MIN: 9 INFANT INFORMATION BABY A Gestational Age at Delivery: 40.0 Gestational Status: Term Outcome : Liveborn Infant Condition : Stable Sex: Female WEIGHT/LENGTH BABY A Birthweight (gms): 2985 Weight (lb): 6 Infant Weight (oz): 9 Infant Length Inches: 19.00 Length cms: 48.3 CORD INFORMATION BABY A No. Cord Vessels: 3 Nuchal Cord : N/A Cord Blood Taken: Yes Infant Suction: Mouth ASSESSMENT BABY A Transferred To: [facility]
[2018-09-19] MEDS: Multivitamin With Minerals Tab PO SCH (08:25)
[2018-09-19] MEDS: Oxycodone/Acetaminophen 5/325 mg Tab PO PRN ×3 (11:41→21:45)
[2018-09-20] MEDS: Simethicone 80 mg Chewtab PO SCH ×4 (04:00→22:32)
[2018-09-20] MEDS: Levothyroxine 50 MCG TAB PO SCH (06:03)
[2018-09-20] MEDS: Multivitamin With Minerals Tab PO SCH (08:37)
--- NOTE | 2018-09-20 08:50 | OP ---
PROCEDURE DATE: 09/18/2018 PREOPERATIVE DIAGNOSES: Intrauterine at 40 plus weeks' gestation, tachycardia, and nonreassuring tracing. POSTOPERATIVE DIAGNOSES: Intrauterine at 40 plus weeks' gestation, tachycardia, and nonreassuring tracing PROCEDURE: Primary low-transverse section via Pfannenstiel incision. SURGEON: Jesus Paez MD ANODIZING LINE OPERATOR: Camille Mendoza, PGY-1 ANESTHESIOLOGIST: Dr. Verdin. ANESTHESIA: Epidural. OPERATIVE FINDINGS: Live delivered from a cephalic presentation. Clear amniotic fluid was noted. was crying spontaneously and handed to the pediatricians. Reported were 9 and 9 at one and five minutes respectively. Placenta was delivered intact manually. Ovaries and tubes appeared to be within normal limits. Double layered closure of the uterus. Gelfoam placed at the lower uterine segment. During the surgery, she had some tachycardia but improved toward the end of the surgery. All equipments, sponges, and needles were accounted for. She remained hemodynamically stable otherwise. ESTIMATED BLOOD LOSS: 1000 mL. DESCRIPTION OF PROCEDURE: The patient was brought to the operating room. She was placed in a supine position. Compression boots were placed on both lower extremities. She had a catheter in the bladder and noted to be draining clear urine. She was then draped and prepped in the usual sterile manner. Once adequate anesthesia was obtained, a Pfannenstiel incision was made using a scalpel. This incision was then taken down to the underlying fascia using a second scalpel. The fascia was nicked in the midline. Fascial incision was then extended bilaterally using curved Delgado scissors. The inferior aspect of the fascia was grasped using two Leon clamps, tented up, and the rectus muscle was both bluntly and sharply dissected using curved Delgado scissors. The same was done with the superior aspect of the fascia. There was some separation in the midline of the rectus muscle and using blunt dissection, we were able to enter and identify the peritoneal cavity, and this was done bluntly. The incision was then extended superiorly and inferiorly with direct visualization of the bladder and intestines. Upon close inspection of the uterus, noted to have large venous sinuses anteriorly. Bladder blade was then inserted. Using Metzenbaum scissors, bladder flap was created by incising peritoneum on the uterus and extending bilaterally. Bladder flap was created digitally. Bladder blade was inserted behind the bladder flap. A low-transverse incision was made using a scalpel. Upon entering the uterus, some blood was noted. Upon entering the uterine cavity, clear amniotic fluid was noted. The incision was then extended bluntly. First, the infant's head was delivered as atraumatically as possible. Remainder of the infant was then delivered as atraumatically as possible. Cord was immediately clamped and cut. was handed to pediatricians in attendance. The was crying spontaneously. Cord bloods were obtained as well as cord pH. The uterus was then exteriorized, cleared of debris and clots. Some bleeding from the venous sinuses were noted. The lower uterine segment was grasped using two Allis clamps and two T-clamps. Good contracture of the uterus was noted. A 0 Vicryl suture was used to close the first layer of the uterus in an interlocking fashion. Second layer of the uterus was closed using 0 Vicryl suture imbricating the first layer. Good contracture of the uterus was noted. Ovaries and tubes appeared to be within normal limits. Posterior cul-de-sac was noted to be clear of debris and clots. Uterus was then placed back into the peritoneal cavity. Lower uterine segment was noted to have some oozing. Hemostasis was assured using electrocautery and one additional suture. Two pieces of Gelfoam were placed on the lower uterine segment to assist in hemostasis. Paracolic gutters were also noted to be clear of debris and clots. All equipments were removed and accounted for. A 0 Vicryl suture was used to approximate the peritoneum in a running fashion. Rectus muscle was noted to have good hemostasis as well. A 0 Vicryl suture was used to approximate the fascial layer in a running fashion. Irrigation was performed. Hemostasis was assured at the level of the subcuticular layer. A 2-0 plain suture was used to approximate the midline at the subcuticular layer x1. A 3-0 Vicryl suture was used to approximate the skin. Dermabond replacement was applied. Pressure bandage was applied. She remained stable other than the tachycardia. Postoperatively, we are going to bring her to the recovery room and check serial CBCs at 6 o'clock and 10 p.m. Jesus Paez DO
--- NOTE | 2018-09-20 23:31 | OBPPN ---
Datetime: 09/20/2018 23:25 PP Pain Prov: Within normal limits PP Nausea Prov: Denies PP Flatus Prov: Yes PP BM Prov: No PP Breasts Prov: Normal PP Heart Prov: Normal PP Lungs Prov: Normal PP Abdomen/Uterus Prov: Normal PP Lochia Prov: Normal PP Vulva/Perineum Prov: Normal PP CVA Tenderness Prov: Normal PP Extremities Prov: Normal PP Comments Phys Exam Prov: Abdomen soft, nontender, nondistended Incision clean, dry, intact Uterus firm, below umbilicus No deep calf tenderness bilaterally PP Impression Prov: Normal progression PP Plan Prov: Continue present management PP Progress Note Prov: Postop day #2 status post , patient recovering well Continue current management, anticipate discharge home tomorrow IP PP Procedures: None Vital Signs Provider PP: Reviewed; Within Normal Limits
[2018-09-21] MEDS: Simethicone 80 mg Chewtab PO SCH ×3 (04:11→09:42)
[2018-09-21] MEDS: Levothyroxine 50 MCG TAB PO SCH (06:53)
[2018-09-21] MEDS: Oxycodone/Acetaminophen 5/325 mg Tab PO PRN (08:21)
[2018-09-21] MEDS: Multivitamin With Minerals Tab PO SCH (08:21)
--- NOTE | 2018-09-21 08:27 | OBPPN ---
Datetime: 09/21/2018 08:21 PP Pain Prov: Within normal limits PP Nausea Prov: Denies PP Flatus Prov: Yes PP Breasts Prov: Not Done PP Heart Prov: Normal PP Lungs Prov: Normal PP Abdomen/Uterus Prov: Normal PP Lochia Prov: Not Done PP Vulva/Perineum Prov: Not Done PP CVA Tenderness Prov: Normal PP Extremities Prov: Normal PP Impression Prov: Normal progression PP Plan Prov: Discharge PP Progress Note Prov: Patient doing well ambulating tolerating diet pain well controlled Vital signs stable afebrile Uterus firm below the umbilicus Incision clean dry intact Extremities no [place] Postoperative day #3 Cleared for discharge Prescription provided Follow-up with Dr. Paez 1 week Vital Signs Provider PP: Reviewed
--- NOTE | 2018-09-21 08:29 | OBDCSUM ---
Datetime: 09/16/2018 08:14 Follow up at, Provider: [facility]. Discharge Instructions, Provider: Routine instructions given Discharge Diagnosis, Provider: Term Delivered Discharge Time: 09/21/2018 08:14 Follow up in weeks, Provider: 1 week Contraception discussed, Prov: Yes Disch Activity Restrictions: Nothing in vagina - [place], tampons, douche Discharge Comment, Provider: Patient cleared for discharge
[2018-09-21 23:51] VITALS: BP 112/63; PULSE 73; RESP 19; TEMP 98.6; O2SAT 99
== END 2018-09-21 14:08 | disposition home or self-care (01) | DRG 787 ==
LOC: H.EROB2 11:09 → H.EROB 11:27 → H.EROB2 12:07 → H.L&D 12:08 → H.OB/GYN 09-18 21:42
PROVIDERS: ADMIT Obstetrics & Gynecology; ATTEND Obstetrics & Gynecology
PROC: 4A1HXCZ Monitoring of Products of Conception, Cardiac Rate, External Approach (ICD-10-PCS; principal; 2018-09-17)
PROC: 10D00Z1 Extraction of Products of Conception, Low, Open Approach (ICD-10-PCS; 2018-09-18)
DX: O48.0 Post-term pregnancy (principal); I97.191 Other postprocedural cardiac functional disturbances following other surgery; O76 Abnormality in fetal heart rate and rhythm complicating labor and delivery; Z3A.40 40 weeks gestation of pregnancy; Z37.0 Single live birth; R00.0 Tachycardia, unspecified; R03.0 Elevated blood-pressure reading, without diagnosis of hypertension; O99.284 Endocrine, nutritional and metabolic diseases complicating childbirth; E03.9 Hypothyroidism, unspecified